=== PATIENT | female | born 1940 | race Caucasian/White ===

== ENCOUNTER 2018-03-27 19:46 | Observation (INO) | payer MEDICARE, OTHER ==
--- NOTE | 2018-03-27 20:20 | RAD ---
PORTABLE CHEST: HISTORY: Chest pain. FINDINGS: The lung stoner are clear. No infiltrate or congestion seen. Heart and mediastinum are unremarkable . IMPRESSION: No acute finding. POS: AGW
[2018-03-27 20:40] LABS: #Basophils 0.1 thou/uL (0.0-0.2); #Eosinphils 0.3 thou/uL (0.0-0.7); #Lymphocytes 2.4 thou/uL (1.20-3.40); #Monocytes 0.7 thou/uL (0.11-0.59); #Neutrophils 5.5 thou/uL (1.40-6.50); %Basophils 0.8 % (0.0-1.0); %Eosinophils 3.3 % (0.0-10.0); %Lymphocytes 26.9 % (21.0-51.0); Mean Corpuscular HGB CONC 32.8 g/dL (32.0-36.0); Mean Corpuscular Hemoglobin 30.3 pg (27.0-31.0); Mean Corpuscular Volume 92.4 fl (81.0-99.0); Mean Platelet Volume 6.5 fL (7.4-10.4); Platelet Count 348 thou/uL (130-400); RBC Distribution Width 11.8 % (11.5-14.5)
[2018-03-27 20:59] LABS: ALT (SGPT) 11 U/L (8-55); AST (SGOT) 14 U/L (5-34); Albumin 3.7 g/dL (3.4-4.8); Alkaline Phosphatase 49 U/L (40-150); Anion Gap 14 mmol/L (10-20); BUN (Urea Nitrogen) 15 mg/dL (9.8-20.1); Bilirubin, Total 0.2 mg/dL (0.2-1.2); CK (CPK) 131 U/L (29-168); Calc. Creatinine Clearance 0 mL/min (70-130); Calcium 8.7 mg/dL (7.8-10.44); Carbon Dioxide 23 mmol/L (23-31); Chloride 108 mmol/L (98-107); Estimated GFR-MDRD 71; Globulin 2.6 g/dL (2.4-3.5); Glucose 110 mg/dL (83-110); Lipase 34 U/L (8-78); Potassium 3.6 mmol/L (3.5-5.1); Protein, Total 6.3 g/dL (6.0-8.3); Sodium 141 mmol/L (136-145)
[2018-03-27 21:04] LABS: CKMB 3.2 ng/mL (0-6.6); Troponin I Less than 0.010 ng/mL (< 0.028)
[2018-03-27 21:14] LABS: Bilirubin Negative (Negative); Blood, Urine Trace (Negative); Clarity CLEAR (Clear); Glucose, Urine (Dipstick) Negative (Negative); Leukocyte Negative (Negative); Nitrite Negative (Negative); Protein, Urine (Dipstick) Negative (Neg-Trace); Specific Gravity, Urine 1.007 (1.002-1.036); Urobilinogen 0.2 mg/dL (0.2-1.0)
[2018-03-27 21:15] LABS: Bacteria/HPF None Seen HPF (None Seen); Hyaline Casts/LPF 0-3 HYALINE CAST LPF (0-3 Hyaline); Pathc Cast-AUWi Flag 0.14 (0-2.49); RBC/HPF 0-3 HPF (0-3); Squamous Epithelial 0-3 HPF (0-3); WBC/HPF 0-3 HPF (0-3)
[2018-03-27] MEDS ORDERED: Nitroglycerin 0.4 MG TAB (25 Tab Bottle) PO PRN (22:06)
[2018-03-27] MEDS ORDERED: Ondansetron HCl/PF 4 MG/2 ML Vial IVP PRN (22:06)
[2018-03-27] MEDS ORDERED: Acetaminophen 325 MG TAB PO PRN (22:06)
[2018-03-27 23:00] VITALS: BMI 28.5
--- NOTE | 2018-03-27 23:44 | HP ---
PRIMARY CARE PHYSICIAN: Dr. Jero Swartz. BREAKFAST ATTENDANT: Dr. Dennis. HISTORY OF PRESENT ILLNESS: This is a 78-year-old female with a minimal past medical history significant for restless leg syndrome and hypothyroidism who presented with 2 episodes of chest discomfort, most actually described as left shoulder pain and numbness radiating up to her jaw and down through her left arm. Patient states that she had an episode that occurred a day ago, which quickly resolved with baby aspirin that she took at home. With the second episode today while at rest, patient presented to the ER out of concern for cardiac issues. Patient denies any prior similar episodes. Patient states that she has recently been ill with some sort of a sinusitis or upper respiratory infection earlier in the month that took her longer than anticipated to recover from however since that episode, she has been feeling overall fatigued. Otherwise, patient denies any changes. REVIEW OF SYSTEMS: Pertinent positives as per HPI, otherwise remainder review of systems negative. Notable for low-grade fevers and chills when she had her episode of congestion earlier. Denies any nausea, vomiting, abdominal pain, diarrhea. Denies any dysuria. Denies any other myalgias or arthralgias. PAST MEDICAL HISTORY: As per HPI includes, 1. Hypothyroidism. 2. Restless leg syndrome. 3. Status post bilateral rotator cuff repair. 4. Status post left breast lumpectomy without any further treatment indicated per the patient. 5. Mitral valve prolapse that the patient has known about for years. HOME MEDICATIONS: Please see the EMR for full details. At this time, the patient's medications have not been placed into the EMR yet. FAMILY HISTORY: Patient denies any known family history of cardiovascular disease, stroke, hypertension, diabetes, or hyperlipidemia. SOCIAL HISTORY: Patient denies any alcohol, tobacco, or illicit drug use. Patient endorses that she wishes to be FULL CODE at this point in time. PHYSICAL EXAMINATION: GENERAL: Patient is awake, alert, conversant in no acute distress, seated on the edge of the hospital bed. HEENT: Normocephalic, atraumatic, equal ocular motions are intact, moist mucous membranes. CARDIOVASCULAR: S1, S2, 2/5 systolic murmur best heard at the left sternal border between third and fourth intercostal spaces. EXTREMITIES: Pulses 2+ bilateral upper extremities, no pitting pedal edema. RESPIRATORY: Reasonable air movement. No conversational dyspnea. No wheezes, rales, or rhonchi. Clear to auscultation bilaterally. ABDOMEN: Positive bowel sounds, soft, nontender to palpation. MUSCULOSKELETAL: Moving all 4 extremities independently. SIGNIFICANT LABORATORY DATA AND IMAGING: WBC 9.0, hemoglobin 13.0, hematocrit 39.7, platelets 348. Sodium 141, potassium 3.6, chloride 108, bicarbonate 23, BUN 15, creatinine 0.78, glucose 110, calcium 8.7. Total bilirubin 0.2, AST 14 , ALT 11, alkaline phosphatase 49. Troponin less than 0.01. Total protein 6.3 , albumin 3.7, lipase of 34. UA is significant for trace blood. On 03/27/2018 , chest x-ray demonstrates impression "No acute finding." EKG is unremarkable, does not demonstrate any ST changes, T-wave changes suggestive of acute coronary syndrome. ASSESSMENT AND PLAN: A 78-year-old female with a history of hypothyroidism and restless-leg syndrome, who is presenting with chief complaint of chest pain. Patient gives the history of stereotypical chest pain concerning for potential acute coronary syndrome. We will evaluate her to rule out for acute coronary syndrome. Maintain the patient on telemetry, serial troponins, fasting lipid panel, and stress test in the morning. This is discussed with the patient who is in agreement with the plan. Patient will be admitted under observation status to telemetry, FULL CODE. MTDD
[2018-03-27 23:54] LABS: Troponin I Less than 0.010 ng/mL (< 0.028)
[2018-03-28 03:28] LABS: #Basophils 0.1 thou/uL (0.0-0.2); #Eosinphils 0.3 thou/uL (0.0-0.7); #Monocytes 0.6 thou/uL (0.11-0.59); #Neutrophils 4.2 thou/uL (1.40-6.50); %Basophils 0.7 % (0.0-1.0); %Eosinophils 4.3 % (0.0-10.0); %Lymphocytes 27.6 % (21.0-51.0); %Monocytes 7.8 % (0.0-10.0); %Neutrophils 59.5 % (42.0-75.0); Hemoglobin 12.3 g/dL (12.0-16.0); Mean Corpuscular HGB CONC 33.5 g/dL (32.0-36.0); Mean Corpuscular Hemoglobin 30.8 pg (27.0-31.0); Mean Platelet Volume 6.4 fL (7.4-10.4); Platelet Count 332 thou/uL (130-400); RBC Distribution Width 11.8 % (11.5-14.5)
[2018-03-28 03:46] LABS: Anion Gap 11 mmol/L (10-20); BUN (Urea Nitrogen) 15 mg/dL (9.8-20.1); Calc. Creatinine Clearance 78 mL/min (70-130); Calcium 9.3 mg/dL (7.8-10.44); Carbon Dioxide 27 mmol/L (23-31); Cardiac Risk 3.4 (Less than 4.5); Chloride 106 mmol/L (98-107); Cholesterol 162 mg/dl (< 200 Desired); Estimated GFR-MDRD 80; Glucose 99 mg/dL (83-110); HDL Cholesterol 47 mg/dL (>60 Neg Risk); LDL Cholesterol, Calculated 103 mg/dL; Potassium 3.9 mmol/L (3.5-5.1); Sodium 140 mmol/L (136-145); Triglycerides 61 mg/dL (Less than 150)
[2018-03-28 03:49] LABS: Troponin I Less than 0.010 ng/mL (< 0.028)
[2018-03-28] MEDS ORDERED: Levothyroxine Sodium 50 MCG TAB PO SCH (06:00)
[2018-03-28] MEDS ORDERED: Enoxaparin Sodium 40 MG/0.4 ML SYRINGE SC SCH (09:00)
[2018-03-28] MEDS ORDERED: Famotidine 40 MG/4 ML VIAL SLOW IVP SCH (09:00)
[2018-03-28] MEDS ORDERED: Famotidine 20 MG TAB PO SCH (09:00)
[2018-03-28] MEDS ORDERED: Estradiol 1 MG TAB PO SCH (09:00)
[2018-03-28 12:12] VITALS: BP 165/75; TEMP 97.6
[2018-03-28] MEDS ORDERED: ADENOSINE 60 MG/20 ML VIAL ONE (12:31)
--- NOTE | 2018-03-28 13:08 | NM ---
NUCLEAR MEDICINE CARDIAC PERFUSION EXAMINATION WITH EJECTION FRACTION: HISTORY: A 78-year-old female with chest pain. TECHNIQUE: A single-day nuclear medicine cardiac perfusion examination was performed. Rest images were obtained using 10.1 mCi of Technetium 99m sestamibi. Stress images were obtained using 29.0 mCi of Technetiu m 99m sestamibi and adenosine. FINDINGS: Tomographic images showed no fixed or reversible perfusion defects. Gated images show normal wall mo tion with an ejection fraction of 55%. EDV is 69 mL. LHR is 0.4. TID is 1.29. IMPRESSION: No evidence of ischemia. POS: ROD
--- NOTE | 2018-03-28 13:39 | DIS ---
PRIMARY CARE PHYSICIAN: Dr. Jero Swartz PRIMARY KITCHEN MECHANIC: Dr. Jose Hancock DATE OF ADMISSION: 03/27/2018 DATE OF DISCHARGE: 03/28/2018 DISCHARGE DIAGNOSES: 1. Noncardiac chest pain. 2. Hypertension. 3. Restless leg syndrome. 4. Mitral valve prolapse. CONSULTATIONS: Dr. Jose Hancock, Cardiology. PROCEDURES: Nuclear stress test 03/28/2018 showed no areas of reversible ischemia, no preserved EF. HOSPITAL COURSE: Ms. Hein is a 78-year-old female who presents to the Emergency Department with c omplaints of chest discomfort x2 with radiation down her left arm. It resolved quickly with a baby a spirin, so she came to the emergency department for evaluation. Workup there was negative. When we were called for admission. The patient was seen by Dr. Rojas who placed her in observation overnight. Serial cardiac biomarkers were negative, nuclear stress testing was performed that was negative. Working Second Hand saw and evaluate d the patient and recommended placing on Toprol-XL, baby aspirin, and Lipitor. These were added to t he patient's regimen. She was discharged home in stable condition with outpatient follow up with him in 1 week. PHYSICAL EXAMINATION: The patient was seen and examined on the day of discharge. Discharge plan and disposition was discussed with the patient. The patient was examined at bedside. DISCHARGE MEDICATIONS: 1. Aspirin 81 mg daily. New prescription sent. 2. Lipitor 10 mg p.o. at bedtime. New prescription sent. 3. Toprol-XL 25 mg p.o. daily. New prescription sent. 4. Amitriptyline 25 mg p.o. at bedtime. 5. Estradiol 1 mg p.o. daily. 6. Levothyroxine 50 mcg daily. 7. Progesterone 170 mg p.o. at bedtime. 8. Ranitidine 150 mg p.o. daily. 9. Requip 1 mg p.o. at bedtime. 10. Thyroid 90 mg daily. FOLLOWUP APPOINTMENTS: 1. Primary care physician, Dr. Swartz within a week. 2. Dr. Hancock within a week. DISCHARGE CONDITION: Stable. DISPOSITION: To be discharged home via private vehicle. DISCHARGE ACTIVITY: Per cardiopulmonary limits. DISCHARGE DIET: Heart healthy recommended.
--- NOTE | 2018-03-28 13:47 | CON ---
DATE OF CONSULTATION: 03/28/2018 REASON FOR CONSULTATION: Chest pain. PRIMARY RANCH MANAGER: Jose Hancock M.D. HISTORY OF PRESENT ILLNESS: Ms. Hein is a 78-year-old woman, who was seen and evaluated in the [facility]. She recently presented with left arm pain. She states she has several intermittent episodes. S he did have one independent episode with jaw pain. She presented to the emergency room with the abov e. No specific chest pain present. CARDIAC RISK FACTORS: None. PAST MEDICAL HISTORY: Restless leg syndrome, rotator cuff repair, hypothyroidism, breast lumpectomy, mitral valve prolapse. FAMILY HISTORY: Negative for CAD. SOCIAL HISTORY: No current tobacco or alcohol use. REVIEW OF SYSTEMS: Ten-point review of systems is reviewed and as above, otherwise negative. HOME MEDICATIONS: Include progesterone, levothyroxine, ranitidine, estradiol, amitriptyline, Requip and thyroid. PHYSICAL EXAMINATION: GENERAL: Patient is a pleasant female who is in no acute distress. The patient appears her stated age. VITAL SIGNS: Blood pressure 127/71, pulse 80, temperature 98.2. NEUROLOGIC: The patient is alert and oriented times 3 with no focal neurologic deficits. HEENT: Sclerae without icterus. Mouth has moist mucous membranes with normal pallor. NECK: No JVD. Carotid upstroke brisk. No bruits bilaterally. LUNGS: Clear to auscultation with unlabored respirations. BACK: No scoliosis or kyphosis. CARDIAC: Regular rate and rhythm with normal S1 and S2. No S3 or S4 noted. No significant rubs, mu rmurs, thrills, or gallops noted throughout the precordium. PMI is not displaced. There is no see ternal heave. ABDOMEN: Soft, nontender, nondistended. No peritoneal signs present. No hepatosplenomegaly. No abn ormal striae. EXTREMITIES: 2+ femoral and 2+ dorsalis pedis pulses. No cyanosis, clubbing, or edema. SKIN: No gross abnormalities. IMAGING: Stress test myocardial perfusion study negative for ischemia. TID 1.29, but end-systolic a nd end-diastolic volumes are small (less than 75 mL) PERTINENT LABORATORY DATA: None. IMPRESSION: Atypical chest pain. RECOMMENDATIONS: Ms. Hein has no significant risk factors for underlying coronary artery disease except for advanced age of 78 years of age. She has no hypertension, diabetes mellitus, hyperlipidem ia and does not smoke. Her TID was 1.29, which at the upper limits of normal and most likely related to a small end-systolic and end-diastolic volumes. At this point, it would be okay from my standpoi nt to discharge to home with low dose Toprol. We would also recommend low dose aspirin. Plan is to follow up with Ms. Hein in the office in the next 1-2 weeks.
[2018-03-28] MEDS ORDERED: Progesterone,Micronized 100 MG CAP PO SCH (21:00)
[2018-03-28] MEDS ORDERED: Amitriptyline HCl 25 MG TAB PO SCH (21:00)
[2018-03-28] MEDS ORDERED: rOPINIRole HCl 1 MG TAB PO SCH (21:00)
== END 2018-03-28 14:10 | disposition home or self-care (01) ==
LOC: ERS 19:46 → 2SW 21:36
PROVIDERS: ADMIT Internal Medicine; ATTEND Internal Medicine
DX: R07.89 Other chest pain (principal); I10 Essential (primary) hypertension; G25.81 Restless legs syndrome; I34.1 Nonrheumatic mitral (valve) prolapse; E03.9 Hypothyroidism, unspecified; Z79.899 Other long term (current) drug therapy; Z88.2 Allergy status to sulfonamides
CPT/HCPCS: 71045; 78452; 80048; 80061; 82550; 82553; 83690; 84484 ×3; 85025; 93005; 93017; 94760; 97139; 99285; A9500; G0378; 36415; 80053; 81003; 81015; 84443; A4216; J0153; J1650

== ENCOUNTER 2018-08-08 02:45 | Emergency (ER) | payer MEDICARE, OTHER ==
[2018-08-08] MEDS ORDERED: diphenhydrAMINE 50 MG/ML VIAL ONE (03:04)
[2018-08-08] MEDS ORDERED: methylPREDNISolone Sod Succ/PF 125 MG/2 ML VIAL ONE (03:05)
[2018-08-08] MEDS ORDERED: Famotidine/PF 20 mg/2ml Vial ONE (03:05)
== END 2018-08-08 05:32 | disposition home or self-care (01) ==
LOC: ERS 02:45
DX: T78.40XA Allergy, unspecified, initial encounter (principal); I10 Essential (primary) hypertension; E03.9 Hypothyroidism, unspecified; K21.9 Gastro-esophageal reflux disease without esophagitis; Z79.899 Other long term (current) drug therapy; Z79.82 Long term (current) use of aspirin
CPT/HCPCS: 96374; 96375; J1200; J2930; S0028

== ENCOUNTER 2023-02-24 11:22 | Outpatient (CLI) | payer MEDICARE, OTHER | END 2023-02-24 11:23 | disposition home or self-care (01) | LOC: BICRAD 11:22 | PROVIDERS: ATTEND Family Medicine | DX: R07.89 Other chest pain (principal); M19.041 Primary osteoarthritis, right hand | CPT/HCPCS: 71046 ==

== ENCOUNTER 2025-09-06 12:00 | Outpatient (CLI) | payer MEDICARE, OTHER | END 2025-09-06 12:01 | disposition home or self-care (01) | LOC: BICRAD 12:00 | PROVIDERS: ATTEND Family Medicine | DX: S90.32XA Contusion of left foot, initial encounter (principal); S92.512A Displaced fracture of proximal phalanx of left lesser toe(s), initial encounter for closed fracture ==